=== PATIENT | female | born 1960 | race Asian ===

== ENCOUNTER 2017-09-24 10:52 | Emergency (ER) | payer MEDICAID ==
[~2017-09-24] VITALS: Ht 149.9 cm; Wt 43.1 kg
[~2017-09-24 10:52] MED LIST: AMLO10TA PO; ASPI81CT89 PO; ATEN50TA8 PO; OMEP40EC1 PO; ORE25 PO
[2017-09-24 11:01] VITALS: BP 160/103
--- NOTE | 2017-09-24 11:07 | NUR ---
PT W/C ASSISTED TO BED 12.
--- NOTE | 2017-09-24 11:23 | NUR ---
ASSUMED PATIENT CARE, CONCUR WITH TRIAGE. NURSING ASSESSMENT COMPLETED.
--- NOTE | 2017-09-24 11:32 | NUR ---
MD AT BEDSIDE, MSE COMPLETED.
[2017-09-24] MEDS ORDERED: NACL 0.9% 1,000 ML IV SCH (11:43)
[2017-09-24] MEDS ORDERED: METOCLOPRAMIDE 10 MG/2 ML INJ VIAL IVP ONE (11:45)
[2017-09-24] MEDS ORDERED: PROMETHAZINE 25 MG/ML VIAL IM ONE (11:45)
[2017-09-24] MEDS ORDERED: FAMOTIDINE 20 MG/2 ML VIAL IVP ONE (11:45)
[2017-09-24] MEDS ORDERED: ONDANSETRON 4 MG/2 ML VIAL IVP ONE (11:45)
[2017-09-24 12:48] LABS: BASOPHILS # (AUTO) 0.1 K/uL (0.00-0.22); BASOPHILS % (AUTO) 1.3 % (0.0-2.0); EOSINOPHILS # (AUTO) 0.1 K/uL (0-0.4); EOSINOPHILS % (AUTO) 0.8 % (0.0-4.0); HEMATOCRIT 36.7 % (36-48); HEMOGLOBIN 12.3 g/dL (12.0-16.0); LYMPHOCYTES # (AUTO) 1.3 K/uL (2.5-16.5); LYMPHOCYTES % (AUTO) 19.9 % (20.5-51.1); MEAN CORPUSCULAR HEMOGLOBIN 30 pg (27-31); MEAN CORPUSCULAR HGB CONC 34 g/dL (33-37); MEAN CORPUSCULAR VOLUME 90 fL (80-94); MONOCYTES # (AUTO) 0.6 K/uL (0.8-1.0); MONOCYTES % (AUTO) 8.9 % (1.7-9.3); NEUTROPHILS # (AUTO) 4.4 K/uL (1.8-7.7); NEUTROPHILS % (AUTO) 69.1 % (42.2-75.2); PLATELET COUNT (AUTO) 292 K/uL (140-450); RED CELL DISTRIBUTION WIDTH 12.6 % (11.6-13.7); WHITE BLOOD COUNT (AUTO) 6.5 K/uL (4.8-10.8)
--- NOTE | 2017-09-24 13:00 | NUR ---
NS 1000 ML BOLUS COMPLETED AT 1300.
[2017-09-24 13:07] LABS: ALBUMIN 3.4 g/dL (3.4-5.0); ANION GAP 13.6 (8-16); CARBON DIOXIDE 29.5 mmol/L (21-32); CREATININE 0.6 mg/dL (0.6-1.3); POTASSIUM 3.1 mmol/L (3.5-5.1); TOTAL BILIRUBIN 0.5 mg/dL (0.0-1.0)
--- NOTE | 2017-09-24 13:12 | NUR ---
ULTRASOUND COMPLETED. TO CT GIANLUCA SMALLWOOD, WITH [employer].
[2017-09-24 14:56] LABS: APPEARANCE,URINE HAZY (CLEAR); BILIRUBIN,URINE NEGATIVE (NEGATIVE); BLOOD, URINE NEGATIVE (NEGATIVE); COLOR,URINE YELLOW (YELLOW); LEUKOCYTE ESTERASE ,URINE 1+ (NEGATIVE); NITRITE, URINE NEGATIVE (NEGATIVE); UGLUCOSE NEGATIVE (NEGATIVE)
[2017-09-24 15:17] LABS: RBC,URINE NONE SEEN /HPF (0-5); WBC,URINE 0-5 (RARE) /HPF (0-5)
[2017-09-24] MEDS ORDERED: POTASSIUM CHL 10 MEQ/D5-1/2NS 1,000 ML IV ONE (15:25)
[2017-09-24] MEDS ORDERED: POTASSIUM CHLORIDE 10 MEQ TABER PO ONE (15:25)
[2017-09-24 16:00] VITALS: BP 117/59
--- NOTE | 2017-09-24 16:30 | NUR ---
DISPO AND MEDICAL DECISION MAKING, DC HOME WITH INSTRUCTIONS AND PRESCRIPTIONS, PATIENT VERBALIZING RELIEF FROM NAUSEA/VOMITING.
--- NOTE | 2017-09-24 16:49 | NUR ---
EKG ORDERED BY PRIOR TO DC. EKG COMPLETED.
--- NOTE | 2017-09-24 17:00 | NUR ---
IV D5 1/2 NS + 10 MEQ OF KCL 1000 ML COMPLETED AT 1700.
--- NOTE | 2017-09-24 17:07 | NUR ---
DC HOME AMBULATORY, ACCOMPANIED BY DAUGHTER.
== END 2017-09-24 17:06 | disposition home or self-care (01) ==
LOC: MED 10:52
DX: A05.0 Foodborne staphylococcal intoxication (principal); E87.6 Hypokalemia; E86.0 Dehydration; I10 Essential (primary) hypertension; Z88.5 Allergy status to narcotic agent
CPT/HCPCS: 36415; 74176; 76705; 80053; 81001; 82150; 82948; 83690; 84703; 85025; 87086; 93005; 96361; 96365; 96375; 99285; J2405; J2550; J2765; J3490; Q0092; 96374